=== PATIENT | female | born 1975 | race American Indian/Alaskan Native ===

== ENCOUNTER 2017-03-23 17:03 | Emergency (ER) | payer MEDICARE ==
--- NOTE | 2017-03-23 20:42 | Emergency Department Report ---
HPI - General Chief Complaint: Allergic Reaction Time Seen by Provider: 03/23/17 18:47 ED Past Medical Hx - Past Medical History Hx Psychiatric Treatment: Yes (DEPRESSION / ANXIETY) Additional medical history: PSEUDOTUMORCEREBRI. BLEEDING ULCERS - Surgical History Hx Cholecystectomy: Yes Additional Surgical History: INTERNAL ABDOMINAL FISTULA. 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 LP SHUNT. LEFT OOPHERECTOMY. X 2. GASTRIC BYPASS - Social History Smoking Status: Never Smoker Substance Use Type: Prescribed - Medications Home Medications: Home Medications Medication Instructions Recorded Confirmed Last Taken Type diphenhydrAMINE [Benadryl CAP] 25 mg PO BID #20 capsule 03/23/17 Unknown Rx ED Review of Systems ROS: Stated complaint: POSSIBLE ALLERGIC REACTION Other details as noted in HPI Physical Exam - Physical Exam Vital Signs: Vital Signs 03/23/17 03/23/17 03/23/17 17:17 19:46 19:56 Temperature 98.8 F 98.4 F Pulse Rate 124 H 93 H 93 H Respiratory 20 Rate Blood Pressure 120/77 Blood Pressure 108/73 [Left] O2 Sat by Pulse 99 100 Oximetry ED Course Vital Signs 03/23/17 03/23/17 03/23/17 17:17 19:46 19:56 Temperature 98.8 F 98.4 F Pulse Rate 124 H 93 H 93 H Respiratory 20 Rate Blood Pressure 120/77 Blood Pressure 108/73 [Left] O2 Sat by Pulse 99 100 Oximetry Critical care attestation.: If time is entered above; I have spent that time in minutes in the direct care of this critically ill patient, excluding procedure time. ED Disposition Clinical Impression: CHF (congestive heart failure) Disposition: DC-01 TO HOME OR SELFCARE Is pt being admited?: No Does the pt Need Aspirin: No Condition: Good Prescriptions: diphenhydrAMINE [Benadryl CAP] 25 mg PO BID #20 capsule Referrals: PRIMARY CARE, [Primary Care Provider] - 3-5 Days Time of Disposition: 20:41
[2017-03-23 23:29] LABS: Alanine Aminotransferase 12 units/L (7-56); Albumin 3.8 g/dL (3.9-5); Albumin/Globulin Ratio 1.2 %; Alkaline Phosphatase 115 units/L (35-129); Anion Gap 17 mmol/L; Blood Urea Nitrogen 9 mg/dL (7-17); Calcium 8.5 mg/dL (8.4-10.2); Carbon Dioxide 25 mmol/L (22-30); Chloride 100.5 mmol/L (98-107); Glucose 99 mg/dL (65-100); Potassium 4.3 mmol/L (3.6-5.0); Sodium 138 mmol/L (137-145); Total Protein 7.1 g/dL (6.3-8.2)
[2017-03-24] MEDS ORDERED: FLUSH HEPARIN IV ONE (00:25)
[2017-03-24 01:04] VITALS: BP 109/73
== END 2017-03-24 01:19 | disposition home or self-care (01) ==
LOC: ED 17:03
DX: I50.9 Heart failure, unspecified (principal)
CPT/HCPCS: 36415; 80053; 93005; 93010; 96374; 99284; J1642